=== PATIENT | male | born 1975 | race Hispanic/Latino ===

== ENCOUNTER → 2019-06-17 | Outpatient (CLI) | payer OTHER | END | disposition home or self-care (01) | LOC: RAH 09:02 | PROVIDERS: ATTEND Orthopaedic Surgery | DX: M25.462 Effusion, left knee (principal); M23.91 Unspecified internal derangement of right knee; X58.XXXA Exposure to other specified factors, initial encounter; Y93.89 Activity, other specified; Y92.89 Other specified places as the place of occurrence of the external cause; Y99.8 Other external cause status | CPT/HCPCS: 73721 ==

== ENCOUNTER 2019-07-12 05:25 | Day surgery (SDC) | payer OTHER ==
[2019-07-04 16:41] LABS: BASOPHILS % (AUTO) 0.8 % (0.0-5.0); HEMATOCRIT 48.3 % (42-54); LYMPHOCYTES % (AUTO) 26.9 % (21.0-51.0); MEAN CORPUSCULAR HEMOGLOBIN 29.6 pg (27.0-33.0); MEAN CORPUSCULAR HGB CONC 33.7 g/dL (32.0-36.0); MEAN CORPUSCULAR VOLUME 87.8 fL (79-99); MONOCYTES % (AUTO) 9.2 % (3.0-13.0); NEUTROPHILS % (AUTO) 57.7 % (40.0-77.0); PLATELET COUNT (AUTO) 266 K/uL (130-400); RED CELL DISTRIBUTION WIDTH 14.2 % (11.0-15.5); WHITE BLOOD COUNT (AUTO) 8.6 K/uL (4.8-10.8)
[2019-07-04 16:54] LABS: CREATININE 0.9 mg/dL (0.5-1.5)
[2019-07-12] VITALS (17 sets, daily range): BP systolic 128–161; BP diastolic 75–114
[~2019-07-12] VITALS: Ht 180.3 cm; Wt 110.7 kg
[2019-07-12] MEDS: CEFAZOLIN SODIUM 1 GM VIAL IVP SCH ×2 (05:00→08:00)
[~2019-07-12 05:25] MED LIST: IBUP-2077 PO
[2019-07-12] MEDS ORDERED: LACTATED RINGERS 1000ML 1,000 ML IV ONE (05:50)
--- NOTE | 2019-07-12 06:20 | NUR ---
POTENTIAL FOR INFECTION: CLIPPED RT LEG / RT KNEE PER MARGARITA LYMAN, FOLLOWED BY WIPING WITH TERRELL: 2% CHLORHEXIDINE GLUCONATE CLOTH PATIENTS PRE-OP SKIN PREP.
[2019-07-12] MEDS ORDERED: ONDANSETRON HCL 4 MG/2 ML VIAL ONE (07:31)
[2019-07-12] MEDS ORDERED: LIDOCAINE PF 2% 5ML ABBOJECT ONE (07:31)
[2019-07-12] MEDS ORDERED: PROPOFOL 10 MG/ML 20ML VIAL IV ONE (07:31)
[2019-07-12] MEDS ORDERED: SUCCINYLCHOLINE CHLORIDE 20 MG/ML 10 ML VIAL ONE (07:31)
[2019-07-12] MEDS ORDERED: FENTANYL CITRATE PF 50 MCG/1 ML 2ML VIAL ONE ×2 (07:32→08:10)
[2019-07-12] MEDS ORDERED: ROCURONIUM 10MG/1ML SYR 10 MG/ML ML ONE (07:32)
[2019-07-12] MEDS ORDERED: MIDAZOLAM HCL 1 MG/ML 2ML VIAL ONE (07:35)
[2019-07-12] MEDS ORDERED: DEXAMETHASONE SOD PHOSPHATE 10MG/ML 1ML VIAL ONE (08:46)
[2019-07-12] MEDS ORDERED: KETOROLAC TROMETHAMINE 30MG/ML ONE (08:59)
[2019-07-12] MEDS ORDERED: IBUP-2077 PO (09:14)
[2019-07-12] MEDS ORDERED: ACET1TAB12 PO (09:14)
[2019-07-12] MEDS ORDERED: CEPH500B PO (09:14)
[2019-07-12] MEDS ORDERED: HYDRALAZINE HCL 20 MG/ML VIAL ONE (09:26)
[2019-07-12] MEDS ORDERED: MEPERIDINE-PF 25 MG/ML SYG ONE ×2 (09:33→09:49)
--- NOTE | 2019-07-12 10:18 | NUR ---
RECEIVE PT RECEIVED FROM PACU VIA STRETCHER AWAKE ALERT ORIENTED X3. PT STABLE. NO COMPLAINTS MADE EXCEPT FOR DRY THROAT, OFFERED ORAL FLUIDS, TOLERATED WATER WELL, DRY THROAT RELIEVED PER PT. DRESSING TO RIGHT KNEE DRY AND INTACT, NO SWELLING NO OOZING NOTED. ICE PACK APPLIED. CALL [facility]A WITHIN REACH, WILL CALL JORDAN GIRLFRIEND TO GIVE DISCHARGE INSTRUCTIONS.
--- NOTE | 2019-07-12 10:50 | NUR ---
DISCHARGE PT DISCHARGED VIA WHEELCHAIR WITH JORDAN- GIRLFRIEND. PT STABLE. DISCHARGE INSTRUCTIONS GIVEN TO JORDAN VIA TELEPHONE, VERBALIZED UNDERSTANDING. PRESCRIPTIONS ELECTRONICALLY SENT TO PREFERRED PHARMACY. PER PT HE HAS CRUTCHES AT HOME AND KNOWS HOW TO USE THEM. DRESSING RIGHT KNEE REMAINS DRY AND INTACT, NO OOZING NO SWELLING NOTED.
== END 2019-07-12 10:50 | disposition home or self-care (01) ==
LOC: DAH 05:25
PROVIDERS: ATTEND Orthopaedic Surgery
DX: S83.241A Other tear of medial meniscus, current injury, right knee, initial encounter (principal); M25.561 Pain in right knee; I10 Essential (primary) hypertension; X58.XXXA Exposure to other specified factors, initial encounter; Y99.0 Civilian activity done for income or pay; M67.51 Plica syndrome, right knee; Y93.89 Activity, other specified; Y92.89 Other specified places as the place of occurrence of the external cause; Z79.899 Other long term (current) drug therapy; Z87.891 Personal history of nicotine dependence
CPT/HCPCS: 29881; 36415; 80048; 85025; A4213; A4215; A4221; A4222; A4223; A4606; A4649 ×2; A4663; A4930; A5120; A6223; J0330; J0360; J0690; J1100; J1885; J2001; J2175 ×2; J2250; J2405; J2704; J3010 ×2; J7030; J7120; 87635